=== PATIENT | male | born 2000 | race Caucasian/White ===

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

== ENCOUNTER 2020-10-29 07:52 | Emergency (ER) | payer MEDICAID, OTHER ==
[~2020-10-29] VITALS: Ht 175.3 cm; Wt 113.6 kg
[~2020-10-29 07:52] MED LIST: ALBU0.212 IH
[2020-10-29 08:21] LABS: BASOPHILS % (AUTO) 0.8 % (0.0-2.0); EOSINOPHILS % (AUTO) 6.4 % (1.0-6.0); HEMATOCRIT 44.7 % (41-53); LYMPHOCYTES % (AUTO) 31.5 % (22.0-44.0); MEAN CORPUSCULAR HEMOGLOBIN 28.9 pg (26.0-34.0); MEAN CORPUSCULAR HGB CONC 33.5 G/dL (31.0-37.0); MEAN CORPUSCULAR VOLUME 86 fL (80-100); MONOCYTES # (AUTO) 0.5 K/uL (0.1-1.0); MONOCYTES % (AUTO) 8.1 % (2.0-9.0); NEUTROPHILS # (AUTO) 3.4 K/uL (1.8-7.7); NEUTROPHILS % (AUTO) 53.2 % (40.0-70.0); PLATELET COUNT (AUTO) 253 K/uL (150-450); RED BLOOD CELL COUNT(AUTO) 5.18 MIL/uL (4.50-5.90); RED CELL DISTRIBUTION WIDTH 13.7 % (11.5-14.5)
[2020-10-29 08:32] LABS: ANION GAP 8 mmol/L (8-16); CALCIUM, TOTAL 8.8 mg/dL (8.8-10.5); CARBON DIOXIDE 26 mmol/L (22-29); CHLORIDE 105 mmol/L (98-107); CREATININE 0.97 mg/dL (0.60-1.30); GLOMERULAR FILTR. RATE CALC > 60 mL/min (>60); GLUCOSE,RANDOM 122 mg/dL (70-110); POTASSIUM 3.7 mmol/L (3.5-5.1); SODIUM SERUM 139 mmol/L (136-145); UREA NITROGEN, BLOOD 14 mg/dL (7-18)
[2020-10-29 08:37] LABS: ALANINE AMINOTRANSFERASE 53 U/L (12-78); ALKALINE PHOSPHATASE 76 U/L (46-116); ASPARTATE AMINOTRANSFERASE 21 U/L (15-37); BILIRUBIN,TOTAL 0.2 mg/dL (0.1-1.0)
[2020-10-29 08:58] LABS: B-TYPE NATRIURETIC PEPTIDE < 5 pg/mL (0-100)
[2020-10-29] MEDS ORDERED: ALBUTEROL SULFATE HFA 90 MCG/PUFF 8 GM INHALER IH ONE (09:00)
[2020-10-29 10:25] VITALS: BP 133/82
[2020-10-29 11:32] LABS: INFLUENZA TYPE A NEGATIVE FOR TYPE A (NEGATIVE); INFLUENZA TYPE B NEGATIVE FOR TYPE B (NEGATIVE)
== END 2020-10-29 10:27 | disposition home or self-care (01) ==
LOC: EMS 07:56
DX: J45.909 Unspecified asthma, uncomplicated (principal); Z20.828 Contact with and (suspected) exposure to other viral communicable diseases
CPT/HCPCS: 36415; 71045; 80053; 83880; 84484; 85025; 87804; 93005; 94640; 99285; U0003; J3535

== ENCOUNTER 2021-12-12 08:38 | Emergency (ER) | payer MEDICAID ==
[~2021-12-12] VITALS: Ht 175.3 cm; Wt 109.1 kg
[2021-12-12] MEDS ORDERED: ALBUTEROL SULFATE 2.5 MG/0.5 ML NEB SOLUTION NEB ONE (10:00)
[2021-12-12] MEDS ORDERED: PredniSONE 20 MG TABLET PO ONE (10:00)
[2021-12-12] MEDS ORDERED: IPRATROPIUM BROMIDE 0.5 MG/2.5 ML NEB SOLUTION NEB ONE (10:00)
[2021-12-12 10:29] LABS: COVID AG,FIA SOURCE NASAL SWAB
[2021-12-12] MEDS ORDERED: ALBUTEROL SULFATE HFA 90 MCG/PUFF 8 GM INHALER IH ONE (11:30)
[2021-12-12 11:33] VITALS: BP 111/71
[2021-12-12] MEDS ORDERED: PRED20 PO (11:54)
== END 2021-12-12 12:19 | disposition home or self-care (01) ==
LOC: EMS 08:48
DX: J45.909 Unspecified asthma, uncomplicated (principal); Z20.822 Contact with and (suspected) exposure to COVID-19
CPT/HCPCS: 87426; 94640; 99285; J7512; J3535

== ENCOUNTER 2022-05-07 15:47 | Emergency (ER) | payer MEDICAID ==
[~2022-05-07] VITALS: Ht 175.3 cm; Wt 104.5 kg
[~2022-05-07 15:47] MED LIST changes: -ALBU0.212 IH; +PRED-554 PO
[2022-05-07 20:40] VITALS: BP 135/63
[2022-05-07] MEDS ORDERED: LIDOCAINE 1% 10 ML VIAL ID ONE (21:00)
[2022-05-07] MEDS ORDERED: BUPIVACAINE HCL/PF 0.5% 10 ML VIAL ID ONE (21:00)
[2022-05-07] MEDS ORDERED: BACITRACIN 0.9 GM PACKET OINTMENT TP ONE (21:15)
[2022-05-07] MEDS ORDERED: CEPH-558 PO (22:10)
== END 2022-05-07 22:58 | disposition home or self-care (01) ==
LOC: EMS 15:56
DX: L03.032 Cellulitis of left toe (principal); J45.909 Unspecified asthma, uncomplicated
CPT/HCPCS: 10060; 99283; J3490 ×2